=== PATIENT | female | born 1960 | race Caucasian/White ===

== ENCOUNTER 2024-12-09 10:45 | Inpatient (IN) | payer MEDICARE, OTHER ==
[~2024-12-09] VITALS: Ht 167.6 cm; Wt 83.0 kg
[2024-12-09] VITALS (13 sets, daily range): BP systolic 110–153; BP diastolic 59–83; TEMP 97–98.1; O2SAT 89–98
[2024-12-09 11:12] LABS: VENOUS BASE EXCESS 9.2 (-2.0-2.0); VENOUS HCO3 43.6 MMOL/L (23.0-27.0); VENOUS O2 SATURATION 71.0 % (60.0-80.0); VENOUS PARTIAL PRESSURE CO2 125.4 mmHg (38.0-50.0); VENOUS PARTIAL PRESSURE O2 39.2 mmHg (30.0-50.0); VENOUS PH 7.159 UNITS (7.330-7.430); VENOUS STANDARD HCO3 32.2 MMOL/L; VENOUS TOTAL CO2 47.4 MMOL/L (24.0-28.0)
[2024-12-09 11:27] LABS: BASO # 0.0 10^3/uL (0.0-0.2); BASO % 0.3 % (0.0-1.0); EOS # 0.0 10^3/uL (0.0-0.5); EOS % 0.1 % (0.0-3.0); LYMPH # 1.9 10^3/uL (1.5-5.0); LYMPH % 18.3 % (24.0-44.0); MONO # 0.3 10^3/uL (0.0-0.8); MONO % 2.9 % (2.0-8.0); NEUTROPHILS # 7.7 10^3/uL (1.5-8.5); NEUTROPHILS % 75.7 % (36.0-66.0); PLATELET COUNT, AUTOMATED 143 10^3/uL (150-450)
[2024-12-09] MEDS: IPRATROPIUM 0.5 MG/ALBUTEROL 2.5 MG INH SOL UD 3 ML NEB PRN (11:27)
[2024-12-09 11:44] LABS: ETHYL ALCOHOL (ETHANOL) < 0.003 % (0.000-0.010)
[2024-12-09 11:55] LABS: ALT/SGPT 86 U/L (7.0-40); AST/SGOT 44 U/L (<34); CALCIUM LEVEL 8.8 MG/DL (8.3-10.6); CARBON DIOXIDE LEVEL > 40.0 MMOL/L (20-31); CHLORIDE LEVEL 96 MMOL/L (98-107); CREATININE FOR GFR 0.70 MG/DL (0.55-1.30); GLOMERULAR FILTRATION RATE > 90.0 (>45); POTASSIUM SERUM 4.6 MMOL/L (3.5-5.1); SODIUM LEVEL 142 MMOL/L (136-145)
[2024-12-09] MEDS: cefTRIAXone SOD 1 GM in DEXTROSE 5% (D5W) ADV/MINI-BAG 50 ML IV ONE (12:06)
[2024-12-09 12:14] LABS: ABG BASE EXCESS 13.9 (-2.0-2.0); ABG HCO3 47.2 MMOL/L (22.0-26.0); ABG O2 SATURATION 93.6 % (95.0-99.0); ABG PARTIAL PRESSURE O2 71.8 mmHg (75.0-100.0); ABG STANDARD HCO3 37.7 MMOL/L. (22.0-26.0); ABG TOTAL CO2 50.9 MMOL/L (23.0-31.0)
[2024-12-09 12:17] LABS: ABG PARTIAL PRESSURE CO2 118.1 mmHg (35.0-45.0); ABG pH (ARTERIAL) 7.220 UNITS (7.350-7.450)
[2024-12-09] MEDS ORDERED: ISOVUE-370 76% 100 ML VIAL As Ordered ONE (12:35)
[2024-12-09] MEDS ORDERED: GLUCOSE 4 GM CHEW PO PRN (13:30)
[2024-12-09] MEDS ORDERED: DEXTROSE 50% 50 ML SYRINGE IV PRN (13:30)
[2024-12-09] MEDS ORDERED: GLUCAGON INJ 1 MG VIAL SC PRN (13:30)
[2024-12-09 14:07] LABS: ESTIMATED AVERAGE GLUCOSE 171.0 MG/DL (60-110)
[2024-12-09 14:10] LABS: FREE T4 0.85 NG/DL (0.89-1.76)
[2024-12-09] MEDS ORDERED: ALBU2.5V10 INH (14:28)
[2024-12-09] MEDS ORDERED: VENTAER INH (14:28)
[2024-12-09] MEDS ORDERED: NICO21DI37 TD (14:28)
[2024-12-09] MEDS ORDERED: SYNT125T PO (14:28)
[2024-12-09] MEDS ORDERED: AMLO1TAB24 PO (14:28)
[2024-12-09] MEDS ORDERED: PRED20TA PO (14:28)
[2024-12-09] MEDS ORDERED: METF-838 PO (14:28)
[2024-12-09] MEDS ORDERED: HOME MED LIST COMPLETE! XX SCH (14:30)
[2024-12-09] MEDS: AZITHROMYCIN INJ 500 MG, VIAL MATE ADAPTER 1 EACH in NS 250 ML IV SCH (14:46)
[2024-12-09] MEDS: IPRATROPIUM 0.5 MG/ALBUTEROL 2.5 MG INH SOL UD 3 ML NEB SCH (15:22)
[2024-12-09 15:37] LABS: APPEARANCE, URINE CLEAR (CLEAR); BACTERIA, URINE AUTO NEGATIVE (NEGATIVE); BILIRUBIN, URINE AUTO NEGATIVE (NEGATIVE); BLOOD, URINE BLOOD 1+ (NEGATIVE); GLUCOSE, URINE (UA) AUTO NEGATIVE (NEGATIVE); KETONE, URINE AUTO NEGATIVE (NEGATIVE); LEUKOCYTE ESTERASE, URINE AUTO NEGATIVE (NEGATIVE); MUCUS, URINE SMALL (NEGATIVE); NITRITE, URINE AUTO NEGATIVE (NEGATIVE); PROTEIN, URINE AUTO NEGATIVE (NEGATIVE); RBC, URINE AUTO 4 /HPF (0-3); SPECIFIC GRAVITY URINE AUTO 1.047 (1.002-1.035); SQUAMOUS EPITHELIAL CELL UR AU 1 /HPF (0-6); UROBILINOGEN, URINE AUTO 0.2 mg/dL (0.0-2.0); WBC, URINE AUTO 2 /HPF (0-3)
[2024-12-09 15:42] LABS: ABG BASE EXCESS 12.2 (-2.0-2.0); ABG HCO3 43.0 MMOL/L (22.0-26.0); ABG O2 SATURATION 96.3 % (95.0-99.0); ABG PARTIAL PRESSURE O2 91.0 mmHg (75.0-100.0); ABG STANDARD HCO3 36.0 MMOL/L. (22.0-26.0); ABG TOTAL CO2 45.9 MMOL/L (23.0-31.0); ABG pH (ARTERIAL) 7.281 UNITS (7.350-7.450)
[2024-12-09 15:45] LABS: ABG PARTIAL PRESSURE CO2 93.5 mmHg (35.0-45.0)
[2024-12-09] MEDS: PANTOPRAZOLE 40MG TAB PO SCH (17:17)
[2024-12-09] MEDS: INSULIN LISPRO (NovoLOG) PER UNIT SC SCH (17:23)
[2024-12-09] MEDS: LIDOCAINE 5% PATCH TD ONE (22:03)
[2024-12-10] VITALS (12 sets, daily range): BP systolic 107–145; BP diastolic 58–75; TEMP 97.6–98.7; O2SAT 89–99
[2024-12-10 04:41] LABS: BASO # 0.0 10^3/uL (0.0-0.2); BASO % 0.3 % (0.0-1.0); EOS # 0.0 10^3/uL (0.0-0.5); EOS % 0.0 % (0.0-3.0); LYMPH # 1.7 10^3/uL (1.5-5.0); LYMPH % 21.0 % (24.0-44.0); MONO # 0.3 10^3/uL (0.0-0.8); MONO % 3.7 % (2.0-8.0); NEUTROPHILS # 5.8 10^3/uL (1.5-8.5); NEUTROPHILS % 73.1 % (36.0-66.0); PLATELET COUNT, AUTOMATED 146 10^3/uL (150-450)
[2024-12-10 05:13] LABS: ALT/SGPT 73 U/L (7.0-40); AST/SGOT 32 U/L (<34); CALCIUM LEVEL 8.4 MG/DL (8.3-10.6); CARBON DIOXIDE LEVEL > 40.0 MMOL/L (20-31); CHLORIDE LEVEL 96 MMOL/L (98-107); CREATININE FOR GFR 0.60 MG/DL (0.55-1.30); GLOMERULAR FILTRATION RATE > 90.0 (>45); MAGNESIUM LEVEL 2.1 MG/DL (1.8-2.4); PHOSPHORUS LEVEL 3.4 MG/DL (2.4-5.1); POTASSIUM SERUM 4.4 MMOL/L (3.5-5.1); SODIUM LEVEL 143 MMOL/L (136-145)
[2024-12-10 05:37] LABS: ABG BASE EXCESS 11.3 (-2.0-2.0); ABG HCO3 39.5 MMOL/L (22.0-26.0); ABG O2 SATURATION 97.6 % (95.0-99.0); ABG PARTIAL PRESSURE O2 106.9 mmHg (75.0-100.0); ABG STANDARD HCO3 35.1 MMOL/L. (22.0-26.0); ABG TOTAL CO2 41.6 MMOL/L (23.0-31.0); ABG pH (ARTERIAL) 7.364 UNITS (7.350-7.450)
[2024-12-10 05:43] LABS: ABG PARTIAL PRESSURE CO2 70.8 mmHg (35.0-45.0)
[2024-12-10] MEDS: ENOXAPARIN 40 MG/0.4 ML SYRINGE (J1650 PER 10MG) SC SCH (08:14)
[2024-12-10] MEDS: LEVOTHYROXINE 100 MCG (0.1 MG) 5ML SDV PF (SOLUTION FORM) IV SCH (08:14)
[2024-12-10] MEDS: amLODIPine 5 MG TAB PO ONE (08:14)
[2024-12-10] MEDS ORDERED: ENOXAPARIN 40 MG/0.4 ML SYRINGE (J1650 PER 10MG) SC SCH (09:00)
[2024-12-10 11:20] LABS: ABG BASE EXCESS 14.0 (-2.0-2.0); ABG HCO3 42.6 MMOL/L (22.0-26.0); ABG O2 SATURATION 97.7 % (95.0-99.0); ABG PARTIAL PRESSURE O2 108.7 mmHg (75.0-100.0); ABG STANDARD HCO3 37.9 MMOL/L. (22.0-26.0); ABG TOTAL CO2 44.9 MMOL/L (23.0-31.0); ABG pH (ARTERIAL) 7.371 UNITS (7.350-7.450)
[2024-12-10 11:21] LABS: ABG PARTIAL PRESSURE CO2 75.2 mmHg (35.0-45.0)
[2024-12-10] MEDS: cefTRIAXone SOD 1 GM in DEXTROSE 5% (D5W) ADV/MINI-BAG 50 ML IV SCH (12:02)
[2024-12-10] MEDS: ATORVASTATIN 20 MG TAB PO SCH (13:09)
[2024-12-10] MEDS: NICOTINE 21 MG/24 HR 1 EA TRANSDERMAL TD SCH (15:48)
[2024-12-10] MEDS: LIDOCAINE 5% PATCH TD SCH (20:18)
[2024-12-10 22:45] LABS: ABG BASE EXCESS 10.5 (-2.0-2.0); ABG HCO3 39.0 MMOL/L (22.0-26.0); ABG O2 SATURATION 97.7 % (95.0-99.0); ABG PARTIAL PRESSURE O2 113.0 mmHg (75.0-100.0); ABG STANDARD HCO3 34.2 MMOL/L. (22.0-26.0); ABG TOTAL CO2 41.2 MMOL/L (23.0-31.0); ABG pH (ARTERIAL) 7.343 UNITS (7.350-7.450)
[2024-12-10 22:47] LABS: ABG PARTIAL PRESSURE CO2 73.4 mmHg (35.0-45.0)
[2024-12-11] VITALS (9 sets, daily range): BP systolic 116–135; BP diastolic 60–75; TEMP 97.5–98.8; O2SAT 90–100
[2024-12-11] MEDS: LEVOTHYROXINE 125 MCG TABLET (0.125 MG) PO SCH (05:40)
[2024-12-11 06:05] LABS: ABG BASE EXCESS 9.6 (-2.0-2.0); ABG HCO3 37.8 MMOL/L (22.0-26.0); ABG O2 SATURATION 97.8 % (95.0-99.0); ABG PARTIAL PRESSURE O2 105.5 mmHg (75.0-100.0); ABG STANDARD HCO3 33.4 MMOL/L. (22.0-26.0); ABG TOTAL CO2 40.0 MMOL/L (23.0-31.0); ABG pH (ARTERIAL) 7.351 UNITS (7.350-7.450)
[2024-12-11 06:06] LABS: CALCIUM LEVEL 8.7 MG/DL (8.3-10.6); CARBON DIOXIDE LEVEL 40 MMOL/L (20-31); CHLORIDE LEVEL 96 MMOL/L (98-107); CREATININE FOR GFR 0.59 MG/DL (0.55-1.30); GLOMERULAR FILTRATION RATE > 90.0 (>45); MAGNESIUM LEVEL 2.1 MG/DL (1.8-2.4); POTASSIUM SERUM 4.3 MMOL/L (3.5-5.1); SODIUM LEVEL 141 MMOL/L (136-145)
[2024-12-11 06:09] LABS: ABG PARTIAL PRESSURE CO2 69.9 mmHg (35.0-45.0)
[2024-12-11] MEDS: LanTUS (INSULIN GLARGINE INJ) 1 UNITS/0.01 ML SC SCH (20:09)
[2024-12-12] VITALS (10 sets, daily range): BP systolic 118–165; BP diastolic 58–85; TEMP 97.1–98.1; O2SAT 91–98
[2024-12-12 04:58] LABS: PLATELET COUNT, AUTOMATED 141 10^3/uL (150-450)
[2024-12-12 05:32] LABS: CALCIUM LEVEL 8.3 MG/DL (8.3-10.6); CARBON DIOXIDE LEVEL 40 MMOL/L (20-31); CHLORIDE LEVEL 98 MMOL/L (98-107); CREATININE FOR GFR 0.60 MG/DL (0.55-1.30); GLOMERULAR FILTRATION RATE > 90.0 (>45); MAGNESIUM LEVEL 2.0 MG/DL (1.8-2.4); POTASSIUM SERUM 4.7 MMOL/L (3.5-5.1); SODIUM LEVEL 142 MMOL/L (136-145)
[2024-12-12] MEDS ORDERED: ATORVASTATIN 20 MG TAB PO SCH (09:00)
[2024-12-12] MEDS: guaiFENesin ER TABLET 600 MG TAB PO SCH (09:12)
[2024-12-12] MEDS: SODIUM CHLORIDE HYPERTONIC 3% 4ML NEB SOL INH SCH (11:37)
[2024-12-12] MEDS: AZITHROMYCIN 250 MG TABLET PO SCH (11:50)
[2024-12-13] VITALS (13 sets, daily range): BP systolic 124–137; BP diastolic 59–74; TEMP 97.5–98.7; O2SAT 86–100
[2024-12-13 07:05] LABS: PLATELET COUNT, AUTOMATED 150 10^3/uL (150-450)
[2024-12-13 07:36] LABS: CALCIUM LEVEL 8.9 MG/DL (8.3-10.6); CARBON DIOXIDE LEVEL > 40.0 MMOL/L (20-31); CHLORIDE LEVEL 97 MMOL/L (98-107); CREATININE FOR GFR 0.57 MG/DL (0.55-1.30); GLOMERULAR FILTRATION RATE > 90.0 (>45); MAGNESIUM LEVEL 1.9 MG/DL (1.8-2.4); POTASSIUM SERUM 4.8 MMOL/L (3.5-5.1); SODIUM LEVEL 143 MMOL/L (136-145)
[2024-12-13] MEDS: predniSONE 20 MG TAB PO SCH (09:03)
[2024-12-13] MEDS: CEFPODOXIME PROXETIL 200 MG TABLET PO SCH (10:11)
[2024-12-13 16:09] LABS: ABG BASE EXCESS 10.7 (-2.0-2.0); ABG HCO3 38.5 MMOL/L (22.0-26.0); ABG O2 SATURATION 98.4 % (95.0-99.0); ABG PARTIAL PRESSURE CO2 69.9 mmHg (35.0-45.0); ABG PARTIAL PRESSURE O2 154.1 mmHg (75.0-100.0); ABG STANDARD HCO3 34.4 MMOL/L. (22.0-26.0); ABG TOTAL CO2 40.7 MMOL/L (23.0-31.0); ABG pH (ARTERIAL) 7.359 UNITS (7.350-7.450)
[2024-12-14] VITALS (14 sets, daily range): BP systolic 119–140; BP diastolic 56–74; TEMP 97–98.2; O2SAT 93–99
[2024-12-14 05:40] LABS: PLATELET COUNT, AUTOMATED 148 10^3/uL (150-450)
[2024-12-14 06:05] LABS: CALCIUM LEVEL 8.6 MG/DL (8.3-10.6); CARBON DIOXIDE LEVEL 38 MMOL/L (20-31); CHLORIDE LEVEL 98 MMOL/L (98-107); CREATININE FOR GFR 0.62 MG/DL (0.55-1.30); GLOMERULAR FILTRATION RATE > 90.0 (>45); MAGNESIUM LEVEL 1.7 MG/DL (1.8-2.4); POTASSIUM SERUM 3.9 MMOL/L (3.5-5.1); SODIUM LEVEL 143 MMOL/L (136-145)
[2024-12-14] MEDS: FUROSEMIDE 40 MG/4 ML VIAL IV ONE (10:15)
[2024-12-14 16:19] LABS: ABG O2 SATURATION 95.6 % (95.0-99.0)
[2024-12-14 16:21] LABS: ABG BASE EXCESS 11.5 (-2.0-2.0); ABG HCO3 39.9 MMOL/L (22.0-26.0); ABG PARTIAL PRESSURE O2 79.8 mmHg (75.0-100.0); ABG STANDARD HCO3 35.3 MMOL/L. (22.0-26.0); ABG TOTAL CO2 42.2 MMOL/L (23.0-31.0); ABG pH (ARTERIAL) 7.359 UNITS (7.350-7.450)
[2024-12-14 16:22] LABS: ABG PARTIAL PRESSURE CO2 72.5 mmHg (35.0-45.0)
[2024-12-15 03:37] VITALS: BP 133/63; TEMP 97.8; O2SAT 99
[2024-12-15 06:01] LABS: PLATELET COUNT, AUTOMATED 152 10^3/uL (150-450)
[2024-12-15 06:31] LABS: CALCIUM LEVEL 8.8 MG/DL (8.3-10.6); CARBON DIOXIDE LEVEL > 40.0 MMOL/L (20-31); CHLORIDE LEVEL 97 MMOL/L (98-107); CREATININE FOR GFR 0.59 MG/DL (0.55-1.30); GLOMERULAR FILTRATION RATE > 90.0 (>45); MAGNESIUM LEVEL 1.8 MG/DL (1.8-2.4); POTASSIUM SERUM 4.1 MMOL/L (3.5-5.1); SODIUM LEVEL 145 MMOL/L (136-145)
[2024-12-15 06:55] VITALS: BP 123/61; TEMP 97.3; O2SAT 98
[2024-12-15 12:29] VITALS: BP 123/60; TEMP 97.3; O2SAT 91
[2024-12-15] MEDS: LIDOCAINE 5% PATCH TD ONE (13:46)
[2024-12-15 15:32] VITALS: BP 129/62; TEMP 97; O2SAT 100
[2024-12-15 16:18] LABS: VENOUS BASE EXCESS 11.0 (-2.0-2.0); VENOUS HCO3 38.7 MMOL/L (23.0-27.0); VENOUS O2 SATURATION 97.6 % (60.0-80.0); VENOUS PARTIAL PRESSURE CO2 66.8 mmHg (38.0-50.0); VENOUS PARTIAL PRESSURE O2 119.6 mmHg (30.0-50.0); VENOUS PH 7.381 UNITS (7.330-7.430); VENOUS STANDARD HCO3 34.8 MMOL/L; VENOUS TOTAL CO2 40.8 MMOL/L (24.0-28.0)
[2024-12-15 20:08] VITALS: BP 117/59; TEMP 97.3; O2SAT 94
[2024-12-16] VITALS (25 sets, daily range): BP systolic 116–133; BP diastolic 59–65; TEMP 97–97.5; O2SAT 91–98
[2024-12-16 06:08] LABS: PLATELET COUNT, AUTOMATED 151 10^3/uL (150-450)
[2024-12-16 06:32] LABS: CALCIUM LEVEL 8.7 MG/DL (8.3-10.6); CARBON DIOXIDE LEVEL > 40.0 MMOL/L (20-31); CHLORIDE LEVEL 94 MMOL/L (98-107); CREATININE FOR GFR 0.58 MG/DL (0.55-1.30); GLOMERULAR FILTRATION RATE > 90.0 (>45); MAGNESIUM LEVEL 1.8 MG/DL (1.8-2.4); POTASSIUM SERUM 3.6 MMOL/L (3.5-5.1); SODIUM LEVEL 144 MMOL/L (136-145)
[2024-12-16] MEDS: LIDOCAINE 5% PATCH TD SCH (19:56)
[2024-12-17] VITALS (24 sets, daily range): BP systolic 125–140; BP diastolic 61–73; TEMP 97–98.1; O2SAT 87–99
[2024-12-17] MEDS: LEVALBUTEROL 1.25 MG 0.5ML CONCENTRATE NEB NEB ONE (00:12)
[2024-12-17] MEDS: LR 1,000 ML IV ONE (03:37)
[2024-12-17] MEDS: LEVALBUTEROL 1.25 MG 0.5ML CONCENTRATE NEB INH PRN (03:58)
[2024-12-17 05:10] LABS: PLATELET COUNT, AUTOMATED 143 10^3/uL (150-450)
[2024-12-17 05:26] LABS: CALCIUM LEVEL 8.1 MG/DL (8.3-10.6); CARBON DIOXIDE LEVEL 40 MMOL/L (20-31); CHLORIDE LEVEL 98 MMOL/L (98-107); CREATININE FOR GFR 0.60 MG/DL (0.55-1.30); GLOMERULAR FILTRATION RATE > 90.0 (>45); MAGNESIUM LEVEL 1.5 MG/DL (1.8-2.4); POTASSIUM SERUM 3.8 MMOL/L (3.5-5.1); SODIUM LEVEL 144 MMOL/L (136-145)
[2024-12-17] MEDS: MAG SULF 1GM/100ML (MAG RUN) 1 GM in IV 1 EA IV ONE (06:31)
[2024-12-17] MEDS: TIOTROPIUM BROM 2.5MCG/ACTUATION 4GM INH INH SCH (07:41)
[2024-12-18] VITALS (9 sets, daily range): BP systolic 112–142; BP diastolic 61–68; TEMP 97.5–98.4; O2SAT 93–99
[2024-12-18 04:59] LABS: PLATELET COUNT, AUTOMATED 146 10^3/uL (150-450)
[2024-12-18] MEDS: predniSONE 20 MG TAB PO SCH (10:33)
[2024-12-19 03:51] VITALS: BP 125/75; TEMP 98.6; O2SAT 98
[2024-12-19 04:26] LABS: PLATELET COUNT, AUTOMATED 153 10^3/uL (150-450)
[2024-12-19 05:11] LABS: CALCIUM LEVEL 8.6 MG/DL (8.3-10.6); CARBON DIOXIDE LEVEL 38 MMOL/L (20-31); CHLORIDE LEVEL 100 MMOL/L (98-107); CREATININE FOR GFR 0.63 MG/DL (0.55-1.30); GLOMERULAR FILTRATION RATE > 90.0 (>45); MAGNESIUM LEVEL 1.8 MG/DL (1.8-2.4); POTASSIUM SERUM 3.9 MMOL/L (3.5-5.1); SODIUM LEVEL 145 MMOL/L (136-145)
[2024-12-19] MEDS: SYMBICORT 160/4.5MCG INHALER 6GM INH SCH (07:41)
[2024-12-19 08:12] VITALS: BP 133/69; TEMP 98.1; O2SAT 93
[2024-12-19 11:54] VITALS: BP 128/70; TEMP 98; O2SAT 94
[2024-12-19] MEDS ORDERED: SPIR12.9 INH (12:55)
[2024-12-19] MEDS ORDERED: METF-838 PO (12:55)
[2024-12-19] MEDS ORDERED: SYNT125T PO (12:55)
[2024-12-19] MEDS ORDERED: AMLO1TAB24 PO (12:55)
[2024-12-19] MEDS ORDERED: NICO21DI37 TD (12:55)
[2024-12-19] MEDS ORDERED: SYMB16INH INH (12:55)
[2024-12-19] MEDS ORDERED: ATOR40TA75 PO (12:55)
[2024-12-19] MEDS ORDERED: LIDO1ADH93 TOP (15:13)
== END 2024-12-19 16:38 | disposition home or self-care (01) | DRG 193 ==
LOC: M ED 10:45 → EDBD 10:45 → M ED INP 13:16 → M ICU 14:08 → M PCU 12-12 16:33
PROVIDERS: ADMIT Internal Medicine; ATTEND Student in an Organized Health Care Education/Training Program
PROC: B246ZZZ Ultrasonography of Right and Left Heart (ICD-10-PCS; principal; 2024-12-11)
DX: J18.9 Pneumonia, unspecified organism (principal); J96.01 Acute respiratory failure with hypoxia; J96.02 Acute respiratory failure with hypercapnia; I47.19 Other supraventricular tachycardia; J44.0 Chronic obstructive pulmonary disease with (acute) lower respiratory infection; J44.1 Chronic obstructive pulmonary disease with (acute) exacerbation; Z99.81 Dependence on supplemental oxygen; E11.65 Type 2 diabetes mellitus with hyperglycemia; I11.9 Hypertensive heart disease without heart failure; E03.9 Hypothyroidism, unspecified; F17.200 Nicotine dependence, unspecified, uncomplicated; I77.810 Thoracic aortic ectasia; Z79.890 Hormone replacement therapy; Z91.148 Patient's other noncompliance with medication regimen for other reason; T38.1X6A Underdosing of thyroid hormones and substitutes, initial encounter; Z79.899 Other long term (current) drug therapy

== ENCOUNTER → 2025-01-03 | Outpatient (REF) | payer MEDICARE ==
[~2025-01-03] MED LIST: ALBU2.5V10 INH; AMLO1TAB24 PO; ATOR40TA75 PO; LIDO1ADH93 TOP; METF-838 PO; NICO21DI37 TD; PRED20TA PO; SPIR12.9 INH; SYMB16INH INH; SYNT125T PO; VENTAER INH
[2025-01-03 18:25] LABS: CHOLESTEROL LEVEL 103.0 MG/DL (<200); CHOLESTEROL RISK RATIO 2.34 (<5); LDL CHOLESTEROL 46.0 MG/DL (<100); NON-HDL-C 59.0 MG/DL; TRIGLYCERIDES LEVEL 65.0 MG/DL (<150)
[2025-01-03 18:26] LABS: FREE T4 1.61 NG/DL (0.89-1.76)
[2025-01-03 18:47] LABS: ESTIMATED AVERAGE GLUCOSE 148.0 MG/DL (60-110)
== END ==
LOC: M LAB REF 16:31
PROVIDERS: ATTEND Student in an Organized Health Care Education/Training Program
DX: E89.0 Postprocedural hypothyroidism (principal); Z68.31 Body mass index [BMI] 31.0-31.9, adult; Z79.899 Other long term (current) drug therapy